=== PATIENT | female | born 1940 | race Two or more races ===

== ENCOUNTER 2024-07-15 07:00 | Inpatient (IN) | payer OTHER ==
[~2024-07-15] VITALS: Ht 154.9 cm; Wt 53.5 kg
[2024-07-15 07:03] VITALS: O2SAT 99
[2024-07-15 09:06] LABS: BASOPHILS % 0.4 % (0.0-2.0); EOSINOPHILS % 3.9 % (0.0-5.0); HEMATOCRIT. 36.5 % (36.0-48.0); HEMOGLOBIN. 11.7 g/dL (12.0-16.0); LYMPHOCYTES % 8.9 % (20.0-50.0); MEAN CORPUSCULAR HEMOGLOBIN 27.8 pg (28.0-32.0); MEAN CORPUSCULAR VOLUME 86.7 fL (81.0-99.0); MEAN PLATELET VOLUME 8.4 fl (7.4-10.4); MONOCYTES % 13.2 % (2.0-8.0); NEUTROPHILS % 73.6 % (40.0-76.0); PLATELET 215 x1000/uL (130-400); RED BLOOD CELL COUNT 4.21 mill/uL (4.2-5.4); RED CELL DISTRIBUTION WIDTH 17.3 % (11.6-14.6)
[2024-07-15 09:13] LABS: CHLORIDE 103 mEq/L (98-107); POTASSIUM 4.8 mEq/L (3.5-5.1); SODIUM 134 mEq/L (136-145)
[2024-07-15 09:14] LABS: CALCIUM 8.6 mg/dL (8.7-10.4); CARBON DIOXIDE 27 mEq/L (21-32)
[2024-07-15 09:19] LABS: CREATININE 1.3 mg/dL (0.6-1.0); GLUCOSE 97 mg/dL (70-105); UREA NITROGEN BLOOD 29 mg/dL (9-23)
[2024-07-15 09:26] LABS: TROPONIN I HIGH SENSITIVITY 67 ng/L (3.0-34)
[2024-07-15] MEDS ORDERED: DEXTROSE 50% WATER 50ML SYRINGE IV PRN (10:00)
[2024-07-15] MEDS ORDERED: DOCUSATE SODIUM 100MG CAPSULE PO PRN (10:00)
[2024-07-15] MEDS ORDERED: GUAIFENESIN 200MG/10ML SUGAR FREE UDC PO PRN (10:00)
[2024-07-15] MEDS ORDERED: ONDANSETRON HCL 4MG/2ML INJ IV PRN (10:00)
[2024-07-15] MEDS ORDERED: ACETAMINOPHEN 325MG TABLET PO PRN ×2 (10:00)
[2024-07-15] MEDS ORDERED: IPRATROPIUM/ALBUTEROL 0.5-3(2.5)MG/3ML NEB HHN PRN (10:00)
[2024-07-15] MEDS ORDERED: CLONIDINE 0.1MG TABLET PO PRN (10:00)
[2024-07-15] MEDS ORDERED: MAGNESIUM/ALUMINUM HYDROXIDE/SIMETHICONE 30ML UDC PO PRN (10:00)
[2024-07-15 10:30] VITALS: BP 113/60; PULSE 71; RESP 18; TEMP 36.6; O2SAT 99
[2024-07-15] MEDS ORDERED: NALOXONE HCL 0.4MG/ML VIAL IV PRN (10:30)
[2024-07-15 11:42] VITALS: BP 113/60; PULSE 71; RESP 16; TEMP 36.6
[2024-07-15 12:00] VITALS: BP 113/60; PULSE 76; RESP 17; TEMP 36.5; O2SAT 99
[2024-07-15] MEDS: BLOOD SUGAR DIAGNOSTIC STRIP TEST SCH (12:59)
[2024-07-15 13:07] LABS: IRON 35 ug/dL (50-170)
[2024-07-15 13:08] LABS: TRIGLYCERIDE 54 mg/dL (0-150)
[2024-07-15 13:09] LABS: LDL CHOLESTEROL 89 mg/dL (5-100)
[2024-07-15 13:10] LABS: CHOLESTEROL 137 mg/dL (<200); HDL CHOLESTEROL 42 mg/dL (>65); PHOSPHORUS 2.8 mg/dL (2.5-4.9); TOTAL IRON BINDING CAPACITY 345 ug/dl (250-425)
[2024-07-15 13:11] LABS: FERRITIN 90 ng/mL (10-291)
[2024-07-15 13:12] LABS: T4 FREE 1.41 ng/dL (0.89-1.76); THYROID STIMULATING HORMONE 2.86 uIU/mL (0.55-4.78); VITAMIN B12 SERUM 741 pg/mL (211-911)
[2024-07-15 14:21] LABS: INR 1.3; PARTIAL THROMBOPLASTIN TIME 34.2 sec (23.4-31.0); PROTHROMBIN TIME 13.4 sec (9.6-11.0)
[2024-07-15] MEDS: CEFTRIAXONE 1GM/50ML 50 ML IV SCH (14:27)
[2024-07-15] MEDS: CLINDAMYCIN 600MG PREMIX 50 ML IV SCH ×2 (14:28→21:59)
[2024-07-15 16:00] VITALS: BP 120/73; PULSE 109; RESP 20; TEMP 36.2; O2SAT 98
[2024-07-15 16:26] LABS: CREATINE KINASE 346 IU/L (34-145)
[2024-07-15 16:58] LABS: TROPONIN I HIGH SENSITIVITY 58 ng/L (3.0-34)
[2024-07-15] MEDS: FUROSEMIDE 40MG/4ML VIAL IVP SCH (18:02)
[2024-07-15] MEDS: ENOXAPARIN 60MG/0.6ML SYR SUBCUT SCH (18:04)
[2024-07-15] MEDS: HYDROCODONE/ACETAMINOPHEN 5/325MG TABLET PO PRN (18:05)
[2024-07-15 20:00] VITALS: BP 96/60; PULSE 99; RESP 20; TEMP 36.7; O2SAT 98
[2024-07-16] VITALS: BP 115/65; PULSE 97; RESP 18; TEMP 37.1; O2SAT 98
[2024-07-16 00:45] LABS: CREATINE KINASE 254 IU/L (34-145)
[2024-07-16 01:09] LABS: TROPONIN I HIGH SENSITIVITY 53 ng/L (3.0-34)
[2024-07-16 04:00] VITALS: BP 103/61; PULSE 95; RESP 18; TEMP 36.4; O2SAT 100
[2024-07-16 06:54] LABS: BASOPHILS % 0.9 % (0.0-2.0); EOSINOPHILS % 5.1 % (0.0-5.0); HEMATOCRIT. 34.3 % (36.0-48.0); LYMPHOCYTES % 11.4 % (20.0-50.0); MEAN CORPUSCULAR HEMOGLOBIN 27.9 pg (28.0-32.0); MEAN CORPUSCULAR HGB CONC 32.1 g/dL (31.0-37.0); MEAN CORPUSCULAR VOLUME 87.1 fL (81.0-99.0); MEAN PLATELET VOLUME 8.3 fl (7.4-10.4); MONOCYTES % 14.9 % (2.0-8.0); NEUTROPHILS % 67.7 % (40.0-76.0); PLATELET 200 x1000/uL (130-400); POTASSIUM 4.4 mEq/L (3.5-5.1); RED BLOOD CELL COUNT 3.94 mill/uL (4.2-5.4); RED CELL DISTRIBUTION WIDTH 16.9 % (11.6-14.6); WHITE BLOOD COUNT 5.8 x1000/uL (4.5-11.0)
[2024-07-16 07:00] LABS: CREATININE 1.4 mg/dL (0.6-1.0)
[2024-07-16] MEDS: CEFTRIAXONE 1GM/50ML 50 ML IV SCH (09:03)
[2024-07-16] MEDS: FAMOTIDINE 20MG/2ML VIAL IV SCH (09:04)
[2024-07-16 10:23] LABS: *AMPHETAMINES SCREEN URINE NEGATIVE (NEGATIVE); *BARBITURATES SCREEN URINE NEGATIVE (NEGATIVE); *BENZODIAZEPINES SCREEN URINE NEGATIVE (NEGATIVE); *COCAINE SCREEN URINE NEGATIVE (NEGATIVE); CREATININE URINE RANDOM 69.6 mg/dL; METHADONE URINE SCREEN NEGATIVE (NEGATIVE); OPIATES URINE SCREEN NEGATIVE (NEGATIVE)
[2024-07-16 10:24] LABS: CANNABINOID URINE SCREEN NEGATIVE (NEGATIVE); ECSTASY MDMA SCREEN URINE NEGATIVE (NEGATIVE); PHENCYCLIDINE URINE SCREEN NEGATIVE (NEGATIVE)
[2024-07-16 12:00] VITALS: BP 111/60; PULSE 73; RESP 16; TEMP 37.1; O2SAT 98
[2024-07-16 16:00] VITALS: BP 131/60; PULSE 71; RESP 20; TEMP 36.4; O2SAT 97
[2024-07-16] MEDS: ENOXAPARIN 30MG/0.3ML SYR SUBCUT SCH (17:52)
[2024-07-16 21:04] LABS: ALANINE AMINOTRANSFERASE 31 IU/L (10-49); ALBUMIN 2.6 g/dL (3.2-4.8); ASPARTATE AMINOTRANSFERASE 52 IU/L (<34); BILIRUBIN DIRECT 0.9 mg/dL (<=3.0); BILIRUBIN TOTAL 1.7 mg/dL (0.1-1.0); PROTEIN TOTAL 5.8 g/dL (6.0-8.3)
== END 2024-07-16 20:40 | disposition short-term general hospital (02) | DRG 280 ==
LOC: ER 07:00 → 7WST 08:22 → EDBEDREQTM 08:26 → EDBEDREQ 08:26
PROVIDERS: ADMIT Hospitalist; ATTEND Hospitalist
DX: I48.91 Unspecified atrial fibrillation (principal); N17.0 Acute kidney failure with tubular necrosis; I21.A1 Myocardial infarction type 2; E87.1 Hypo-osmolality and hyponatremia; G93.40 Encephalopathy, unspecified; I50.42 Chronic combined systolic (congestive) and diastolic (congestive) heart failure; L03.116 Cellulitis of left lower limb; L03.115 Cellulitis of right lower limb; I13.0 Hypertensive heart and chronic kidney disease with heart failure and stage 1 through stage 4 chronic kidney disease, or unspecified chronic kidney disease; E86.0 Dehydration; G90.89 Other disorders of autonomic nervous system; I87.2 Venous insufficiency (chronic) (peripheral); I89.0 Lymphedema, not elsewhere classified; N18.9 Chronic kidney disease, unspecified; D63.8 Anemia in other chronic diseases classified elsewhere; E78.00 Pure hypercholesterolemia, unspecified; I95.9 Hypotension, unspecified; Z91.81 History of falling; Z79.01 Long term (current) use of anticoagulants; Z79.899 Other long term (current) drug therapy
CPT/HCPCS: 36415; 71045; 80048; 80061; 80076; 80305; 82040; 82550; 82570; 82607; 82728; 82962; 83036; 83540; 83550; 83605; 83735; 83880; 83930; 83935; 84100; 84145; 84300; 84439; 84443; 84484; 84540; 85025; 85044; 85651; 87070; 87077; 87186; 93005; 93923; 99285; A4606; J0696; J1650; J1940; J3490

== ENCOUNTER 2024-08-13 18:37 | Inpatient (IN) | payer OTHER, MEDICARE ==
[~2024-08-13] VITALS: Ht 132.1 cm; Wt 63.5 kg
[2024-08-13 18:39] VITALS: O2SAT 100
[2024-08-13] MEDS: SODIUM CHLORIDE 0.9% (SEPSIS BOLUS) IV ONE (19:05)
[2024-08-13] MEDS: PIPERACILLIN/TAZO 3.375G/50ML 50 ML IV ONE (19:06)
[2024-08-13 19:26] LABS: CHLORIDE 108 mEq/L (98-107); POTASSIUM 3.9 mEq/L (3.5-5.1); SODIUM 145 mEq/L (136-145)
[2024-08-13 19:27] LABS: CALCIUM 7.9 mg/dL (8.7-10.4); CARBON DIOXIDE 23 mEq/L (21-32)
[2024-08-13 19:32] LABS: GLUCOSE 61 mg/dL (70-105); UREA NITROGEN BLOOD 46 mg/dL (9-23)
[2024-08-13 19:33] LABS: CREATININE 2.2 mg/dL (0.6-1.0)
[2024-08-13 19:34] LABS: ALANINE AMINOTRANSFERASE 28 IU/L (10-49); ALBUMIN 2.3 g/dL (3.2-4.8); ASPARTATE AMINOTRANSFERASE 70 IU/L (<34); CREATINE KINASE 382 IU/L (34-145)
[2024-08-13 19:35] LABS: BILIRUBIN DIRECT 1.7 mg/dL (<=3.0); BILIRUBIN TOTAL 2.6 mg/dL (0.1-1.0); PROTEIN TOTAL 5.3 g/dL (6.0-8.3)
[2024-08-13 19:37] LABS: HEMATOCRIT. 39.2 % (36.0-48.0); HEMOGLOBIN. 12.3 g/dL (12.0-16.0); MEAN CORPUSCULAR HEMOGLOBIN 26.8 pg (28.0-32.0); MEAN CORPUSCULAR HGB CONC 31.5 g/dL (31.0-37.0); MEAN CORPUSCULAR VOLUME 85.2 fL (81.0-99.0); MEAN PLATELET VOLUME 8.2 fl (7.4-10.4); PLATELET 173 x1000/uL (130-400); RED CELL DISTRIBUTION WIDTH 18.9 % (11.6-14.6); WHITE BLOOD COUNT 2.1 x1000/uL (4.5-11.0)
[2024-08-13 19:42] LABS: DIFFERENTIAL COMMENT 1
[2024-08-13 19:46] LABS: LACTIC ACID 4.7 mmol/L (0.4-2.0)
[2024-08-13 19:47] LABS: TROPONIN I HIGH SENSITIVITY 106 ng/L (3.0-34)
[2024-08-13] MEDS: VANCOMYCIN 1G PREMIX 200 ML IV ONE (20:08)
[2024-08-13 20:12] LABS: ANISOCYTOSIS 1+; PLATELET ESTIMATE NORMAL
[2024-08-13] MEDS ORDERED: FUROSEMIDE 40MG/4ML VIAL IVP ONE (20:15)
[2024-08-13] MEDS: DEXTROSE 50% WATER 50ML SYRINGE IV ONE (20:40)
[2024-08-13] MEDS: NOREPINEPHRINE 8MG/250ML PMX 250 ML IV ONE (21:09)
[2024-08-13] MEDS ORDERED: MAGNESIUM/ALUMINUM HYDROXIDE/SIMETHICONE 30ML UDC PO PRN (21:15)
[2024-08-13] MEDS ORDERED: ACETAMINOPHEN 325MG TABLET PO PRN ×2 (21:15→21:30)
[2024-08-13] MEDS ORDERED: ONDANSETRON HCL 4MG/2ML INJ IV PRN (21:15)
[2024-08-13] MEDS ORDERED: DOCUSATE SODIUM 100MG CAPSULE PO PRN (21:15)
[2024-08-13] MEDS ORDERED: IPRATROPIUM/ALBUTEROL 0.5-3(2.5)MG/3ML NEB HHN PRN (21:15)
[2024-08-13] MEDS ORDERED: HYDROCODONE/ACETAMINOPHEN 5/325MG TABLET PO PRN (21:15)
[2024-08-13] MEDS ORDERED: ENOXAPARIN 40MG/0.4ML SYR SUBCUT SCH (21:15)
[2024-08-13] MEDS ORDERED: PIPERACILLIN/TAZOBACTAM 3.375 G in DEXTROSE 5% WATER 50 ML IV SCH (21:15)
[2024-08-13] MEDS ORDERED: POTASSIUM CHLORIDE 20MEQ TABLET SR PO PRN (21:15)
[2024-08-13] MEDS ORDERED: DEXTROSE 50% WATER 50ML SYRINGE IV PRN (21:15)
[2024-08-13] MEDS ORDERED: NALOXONE HCL 0.4MG/ML VIAL IV PRN (21:45)
[2024-08-13 21:49] LABS: PROTHROMBIN TIME > 100.0 sec (9.6-11.0)
[2024-08-13] MEDS: SODIUM CHLORIDE 0.9% 1,000 ML IV SCH (21:50)
[2024-08-13 21:53] LABS: INR > 10.0
[2024-08-13] MEDS: ENOXAPARIN 30MG/0.3ML SYR SUBCUT SCH (22:00)
[2024-08-13] MEDS: DEXT 10% WATER 1,000 ML IV SCH (23:17)
[2024-08-14] VITALS (78 sets, daily range): BP systolic 56–149; BP diastolic 29–125; PULSE 86–133; RESP 13–24; TEMP 36.1–37.1; O2SAT 86–100
[2024-08-14] MEDS ORDERED: FUROSEMIDE 40MG/4ML VIAL IVP ONE (00:30)
[2024-08-14] MEDS: FUROSEMIDE 40MG/4ML VIAL IVP NR (01:24)
[2024-08-14 06:16] LABS: CALCIUM 8.2 mg/dL (8.7-10.4); CARBON DIOXIDE 22 mEq/L (21-32); CHLORIDE 109 mEq/L (98-107); HEMATOCRIT. 42.1 % (36.0-48.0); HEMOGLOBIN. 13.2 g/dL (12.0-16.0); MEAN CORPUSCULAR HGB CONC 31.3 g/dL (31.0-37.0); MEAN CORPUSCULAR VOLUME 86.3 fL (81.0-99.0); MEAN PLATELET VOLUME 8.4 fl (7.4-10.4); PLATELET 177 x1000/uL (130-400); RED BLOOD CELL COUNT 4.88 mill/uL (4.2-5.4); RED CELL DISTRIBUTION WIDTH 18.9 % (11.6-14.6); SODIUM 144 mEq/L (136-145); WHITE BLOOD COUNT 4.8 x1000/uL (4.5-11.0)
[2024-08-14 06:18] LABS: DIFFERENTIAL COMMENT 1
[2024-08-14 06:21] LABS: CREATININE 2.1 mg/dL (0.6-1.0); GLUCOSE 82 mg/dL (70-105)
[2024-08-14 06:22] LABS: LDL CHOLESTEROL 73 mg/dL (5-100); TRIGLYCERIDE 55 mg/dL (0-150); UREA NITROGEN BLOOD 45 mg/dL (9-23)
[2024-08-14 06:23] LABS: ALANINE AMINOTRANSFERASE 35 IU/L (10-49); ALBUMIN 2.5 g/dL (3.2-4.8); ASPARTATE AMINOTRANSFERASE 98 IU/L (<34); CHOLESTEROL 125 mg/dL (<200); CREATINE KINASE 304 IU/L (34-145); HDL CHOLESTEROL 21 mg/dL (>65)
[2024-08-14 06:24] LABS: BILIRUBIN DIRECT 1.7 mg/dL (<=3.0); BILIRUBIN TOTAL 2.6 mg/dL (0.1-1.0); PHOSPHORUS 4.3 mg/dL (2.5-4.9); PROTEIN TOTAL 5.9 g/dL (6.0-8.3)
[2024-08-14 06:26] LABS: T4 FREE 0.96 ng/dL (0.89-1.76)
[2024-08-14 06:29] LABS: CLARITY URINE CLOUDY (CLEAR); COLOR URINE DARK YELLOW (YELLOW); GLUCOSE URINE NEGATIVE (NEGATIVE); KETONES URINE NEGATIVE (NEGATIVE); LEUKOCYTE ESTERASE URINE TRACE (NEGATIVE); NITRITE URINE NEGATIVE (NEGATIVE); OCCULT BLOOD URINE NEGATIVE (NEGATIVE); PROTEIN URINE NEGATIVE (NEGATIVE); SPECIFIC GRAVITY URINE 1.015 (1.005-1.030)
[2024-08-14 06:51] LABS: TROPONIN I HIGH SENSITIVITY 106 ng/L (3.0-34)
[2024-08-14] MEDS ORDERED: NOREPINEPHRINE 8 MG in DEXT 5% WATER 242 ML IV PRN (07:15)
[2024-08-14] MEDS: NOREPINEPHRINE 8MG/250ML PMX 250 ML IV PRN (07:16)
[2024-08-14 07:25] LABS: BACTERIA URINE 1+; HYALINE CASTS URINE 0-5 /lpf; RBC URINE 0-2 /hpf (0-2); SQUAMOUS EPITHELIAL CELL URINE FEW /lpf (RARE/1+); WBC URINE 0-2 /hpf (0-2); YEAST URINE NONE SEEN
[2024-08-14 07:30] LABS: INR > 10.0; PROTHROMBIN TIME > 100.0 sec (9.6-11.0)
[2024-08-14 07:32] LABS: *AMPHETAMINES SCREEN URINE NEGATIVE (NEGATIVE)
[2024-08-14 07:35] LABS: *BARBITURATES SCREEN URINE NEGATIVE (NEGATIVE); *BENZODIAZEPINES SCREEN URINE NEGATIVE (NEGATIVE)
[2024-08-14 07:36] LABS: *COCAINE SCREEN URINE NEGATIVE (NEGATIVE); CANNABINOID URINE SCREEN NEGATIVE (NEGATIVE); ECSTASY MDMA SCREEN URINE NEGATIVE (NEGATIVE); METHADONE URINE SCREEN NEGATIVE (NEGATIVE); OPIATES URINE SCREEN NEGATIVE (NEGATIVE); PHENCYCLIDINE URINE SCREEN NEGATIVE (NEGATIVE)
[2024-08-14] MEDS: BLOOD SUGAR DIAGNOSTIC STRIP TEST SCH (08:00)
[2024-08-14 08:44] LABS: NUCLEATED RED BLOOD CELLS 1 /100 WBC; TOXIC VACUOLATION 3+
[2024-08-14 08:46] LABS: PLATELET ESTIMATE NORMAL
[2024-08-14 08:47] LABS: ANISOCYTOSIS 1+
[2024-08-14] MEDS ORDERED: NOREPINEPHRINE 32 MG in DEXT 5% WATER 218 ML IV PRN (09:00)
[2024-08-14] MEDS ORDERED: DIGOXIN 50MCG/ML ORAL SYR PO ONE (09:15)
[2024-08-14] MEDS: PHENYLEPHRINE 100 MG in DEXT 5% WATER 240 ML IV PRN (09:26)
[2024-08-14] MEDS: DIGOXIN 125MCG TABLET PO NR (10:40)
[2024-08-14] MEDS: PIPERACILLIN/TAZO 3.375G/50ML IV SCH (10:40)
[2024-08-14] MEDS: PANTOPRAZOLE 40MG DR TABLET PO SCH (10:40)
[2024-08-14] MEDS ORDERED: LIDOCAINE HCL 1% 10 MG/ML 10ML VIAL ONE (12:31)
[2024-08-14] MEDS ORDERED: DILTIAZEM HCL 5MG/ML 5ML VIAL IV PRN (12:45)
[2024-08-14] MEDS: VANCOMYCIN 500MG PREMIX 100 ML IV SCH (21:21)
[2024-08-14] MEDS: VASOPRESSIN 20 UNIT in SODIUM CHLORIDE 0.9% 99 ML IV PRN (22:32)
[2024-08-15] VITALS (82 sets, daily range): BP systolic 65–134; BP diastolic 44–103; PULSE 77–112; RESP 11–26; TEMP 36.05844–36.7; O2SAT 90–100
[2024-08-15] MEDS: AZITHROMYCIN 500MG/250ML 250 ML IV SCH (01:42)
[2024-08-15 05:53] LABS: HEMOGLOBIN. 12.4 g/dL (12.0-16.0); MEAN CORPUSCULAR HEMOGLOBIN 26.7 pg (28.0-32.0); MEAN CORPUSCULAR HGB CONC 30.9 g/dL (31.0-37.0); MEAN CORPUSCULAR VOLUME 86.5 fL (81.0-99.0); MEAN PLATELET VOLUME 8.4 fl (7.4-10.4); PLATELET 126 x1000/uL (130-400); RED BLOOD CELL COUNT 4.62 mill/uL (4.2-5.4); RED CELL DISTRIBUTION WIDTH 18.9 % (11.6-14.6); WHITE BLOOD COUNT 15.3 x1000/uL (4.5-11.0)
[2024-08-15 06:04] LABS: DIFFERENTIAL COMMENT 1
[2024-08-15 06:10] LABS: CHLORIDE 105 mEq/L (98-107); POTASSIUM 5.2 mEq/L (3.5-5.1); SODIUM 140 mEq/L (136-145)
[2024-08-15 06:11] LABS: CALCIUM 8.3 mg/dL (8.7-10.4); CARBON DIOXIDE 22 mEq/L (21-32)
[2024-08-15 06:16] LABS: CREATININE 2.5 mg/dL (0.6-1.0); GLUCOSE 125 mg/dL (70-105); UREA NITROGEN BLOOD 50 mg/dL (9-23)
[2024-08-15 06:18] LABS: ALANINE AMINOTRANSFERASE 41 IU/L (10-49); ALBUMIN 2.4 g/dL (3.2-4.8); ASPARTATE AMINOTRANSFERASE 99 IU/L (<34); BILIRUBIN DIRECT 1.7 mg/dL (<=3.0); BILIRUBIN TOTAL 2.5 mg/dL (0.1-1.0); PHOSPHORUS 5.2 mg/dL (2.5-4.9); PROTEIN TOTAL 5.5 g/dL (6.0-8.3)
[2024-08-15 06:22] LABS: TROPONIN I HIGH SENSITIVITY 68 ng/L (3.0-34)
[2024-08-15] MEDS ORDERED: SODIUM POLYSTYRENE SULFONATE 15 G/60 ML BOT PO ONE (07:30)
[2024-08-15] MEDS: SEVELAMER CARBONATE 800 MG TABLET PO NR (08:50)
[2024-08-15] MEDS: SODIUM ZIRCONIUM CYCLOSILICATE 10GM/PACKET PO NR (08:51)
[2024-08-15 09:19] LABS: PLATELET ESTIMATE SLIGHTLY DECREASED
[2024-08-15 09:25] LABS: TOXIC VACUOLATION 1+
[2024-08-15 10:36] LABS: HEMATOCRIT. 37.5 % (36.0-48.0); HEMOGLOBIN. 11.7 g/dL (12.0-16.0); MEAN CORPUSCULAR HEMOGLOBIN 26.6 pg (28.0-32.0); MEAN CORPUSCULAR HGB CONC 31.3 g/dL (31.0-37.0); MEAN CORPUSCULAR VOLUME 84.9 fL (81.0-99.0); MEAN PLATELET VOLUME 8.5 fl (7.4-10.4); PLATELET 117 x1000/uL (130-400); RED BLOOD CELL COUNT 4.41 mill/uL (4.2-5.4); RED CELL DISTRIBUTION WIDTH 19.1 % (11.6-14.6); WHITE BLOOD COUNT 15.7 x1000/uL (4.5-11.0)
[2024-08-15 10:37] LABS: DIFFERENTIAL COMMENT 1
[2024-08-15 11:50] LABS: INR > 10.0; PROTHROMBIN TIME > 100.0 sec (9.6-11.0)
[2024-08-15 12:41] LABS: NUCLEATED RED BLOOD CELLS 1 /100 WBC; PLATELET ESTIMATE DECREASED
[2024-08-15 12:42] LABS: ANISOCYTOSIS 1+
[2024-08-15] MEDS: PHYTONADIONE 10MG/ML INJ SUBCUT SCH (14:06)
[2024-08-15] MEDS: SODIUM CHLORIDE 0.9% 500 ML IV ONE (15:32)
[2024-08-15] MEDS: DEXTROSE 50% WATER 50ML SYRINGE IV PRN (16:07)
[2024-08-15 16:13] LABS: PROTHROMBIN TIME 38.7 sec (9.6-11.0)
[2024-08-15 16:29] LABS: INR 4.1
[2024-08-15] MEDS ORDERED: SODIUM CHLORIDE 0.9% 1,000 ML IV SCH (19:15)
[2024-08-15] MEDS ORDERED: VANCOMYCIN 750MG/150ML (BAXTER) IV SCH (21:00)
[2024-08-16] VITALS (77 sets, daily range): BP systolic 85–132; BP diastolic 40–109; PULSE 66–92; RESP 11–27; TEMP 36.3–36.6; O2SAT 98–100
[2024-08-16 05:02] LABS: HEMATOCRIT. 34.3 % (36.0-48.0); HEMOGLOBIN. 10.9 g/dL (12.0-16.0); MEAN CORPUSCULAR HEMOGLOBIN 26.7 pg (28.0-32.0); MEAN CORPUSCULAR HGB CONC 31.9 g/dL (31.0-37.0); MEAN CORPUSCULAR VOLUME 83.7 fL (81.0-99.0); MEAN PLATELET VOLUME 8.8 fl (7.4-10.4); PLATELET 98 x1000/uL (130-400); RED CELL DISTRIBUTION WIDTH 18.1 % (11.6-14.6)
[2024-08-16 05:09] LABS: PROTHROMBIN TIME 37.3 sec (9.6-11.0)
[2024-08-16 05:18] LABS: CHLORIDE 104 mEq/L (98-107); POTASSIUM 4.6 mEq/L (3.5-5.1); SODIUM 137 mEq/L (136-145)
[2024-08-16 05:19] LABS: CALCIUM 7.8 mg/dL (8.7-10.4); CARBON DIOXIDE 22 mEq/L (21-32)
[2024-08-16 05:22] LABS: UREA NITROGEN BLOOD 58 mg/dL (9-23)
[2024-08-16 05:24] LABS: CREATININE 2.6 mg/dL (0.6-1.0); GLUCOSE 108 mg/dL (70-105)
[2024-08-16 05:26] LABS: ALANINE AMINOTRANSFERASE 38 IU/L (10-49); ALBUMIN 2.6 g/dL (3.2-4.8); ASPARTATE AMINOTRANSFERASE 66 IU/L (<34)
[2024-08-16 05:27] LABS: BILIRUBIN DIRECT 1.8 mg/dL (<=3.0); BILIRUBIN TOTAL 2.4 mg/dL (0.1-1.0); PHOSPHORUS 4.8 mg/dL (2.5-4.9); PROTEIN TOTAL 5.7 g/dL (6.0-8.3)
[2024-08-16 05:37] LABS: DIFFERENTIAL COMMENT 1
[2024-08-16] MEDS ORDERED: SODIUM CHLORIDE 0.45% 250 ML IV ONE (07:36)
[2024-08-16] MEDS: FOLIC ACID/VITAMIN B COMP W-C TABLET PO SCH (08:08)
[2024-08-16] MEDS: DEXT 5%/0.9% NACL 1,000 ML IV SCH (08:59)
[2024-08-16 09:08] LABS: PLATELET ESTIMATE DECREASED
[2024-08-16 09:09] LABS: ANISOCYTOSIS 1+
[2024-08-16] MEDS: MIDODRINE HCL 5MG TABLET PO SCH (15:16)
[2024-08-16] MEDS: VANCOMYCIN 500MG/100ML IV NR (15:16)
[2024-08-16 21:07] LABS: POTASSIUM 5.4 mEq/L (3.5-5.1)
[2024-08-16 21:08] LABS: CALCIUM 7.6 mg/dL (8.7-10.4)
[2024-08-16 21:13] LABS: CREATININE 2.4 mg/dL (0.6-1.0)
[2024-08-16] MEDS: LACTOBACILLUS RHAMNOSUS GG CAP PO SCH (23:05)
[2024-08-16] MEDS: CLINDAMYCIN 900MG PREMIX 50 ML IV SCH (23:06)
[2024-08-16] MEDS: CEFTRIAXONE 2GM/50ML 50 ML IV SCH (23:56)
[2024-08-17] VITALS (90 sets, daily range): BP systolic 86–131; BP diastolic 42–86; PULSE 58–82; RESP 8–33; TEMP 35.6–36.5; O2SAT 96–100
[2024-08-17 05:25] LABS: HEMOGLOBIN. 10.8 g/dL (12.0-16.0); MEAN CORPUSCULAR HEMOGLOBIN 26.7 pg (28.0-32.0); MEAN CORPUSCULAR HGB CONC 31.9 g/dL (31.0-37.0); MEAN CORPUSCULAR VOLUME 83.7 fL (81.0-99.0); MEAN PLATELET VOLUME 8.8 fl (7.4-10.4); PLATELET 80 x1000/uL (130-400); RED BLOOD CELL COUNT 4.07 mill/uL (4.2-5.4); RED CELL DISTRIBUTION WIDTH 18.5 % (11.6-14.6); WHITE BLOOD COUNT 9.1 x1000/uL (4.5-11.0)
[2024-08-17 05:34] LABS: DIFFERENTIAL COMMENT 1
[2024-08-17 05:41] LABS: INR 1.6; PROTHROMBIN TIME 16.2 sec (9.6-11.0)
[2024-08-17 05:46] LABS: POTASSIUM 4.2 mEq/L (3.5-5.1)
[2024-08-17 05:48] LABS: CALCIUM 7.7 mg/dL (8.7-10.4)
[2024-08-17 05:52] LABS: CREATININE 2.3 mg/dL (0.6-1.0)
[2024-08-17 07:35] LABS: ANISOCYTOSIS 2+; NUCLEATED RED BLOOD CELLS 1 /100 WBC; PLATELET ESTIMATE DECREASED
[2024-08-17] MEDS ORDERED: MIDODRINE HCL 5MG TABLET PO SCH (22:00)
== END 2024-08-17 21:41 | disposition short-term general hospital (02) | DRG 871 ==
LOC: ER 19:30 → EDBEDREQ 19:54 → MICUSO 20:53 → EDBEDREQ 21:01 → EDBEDREQSVC 21:01 → ENRESERV 08-14 07:23 → MICUSO 08-16 06:57
PROVIDERS: ADMIT Family Medicine Adult Medicine; ATTEND Family Medicine Adult Medicine
PROC: 02HV33Z Insertion of Infusion Device into Superior Vena Cava, Percutaneous Approach (ICD-10-PCS; principal; 2024-08-14)
PROC: 30233K1 Transfusion of Nonautologous Frozen Plasma into Peripheral Vein, Percutaneous Approach (ICD-10-PCS; 2024-08-15)
DX: A41.89 Other specified sepsis (principal); I21.A1 Myocardial infarction type 2; J18.9 Pneumonia, unspecified organism; J96.01 Acute respiratory failure with hypoxia; N17.0 Acute kidney failure with tubular necrosis; R65.21 Severe sepsis with septic shock; L03.115 Cellulitis of right lower limb; I13.0 Hypertensive heart and chronic kidney disease with heart failure and stage 1 through stage 4 chronic kidney disease, or unspecified chronic kidney disease; G93.40 Encephalopathy, unspecified; M62.82 Rhabdomyolysis; E87.20 Acidosis, unspecified; I50.22 Chronic systolic (congestive) heart failure; L03.116 Cellulitis of left lower limb; I48.91 Unspecified atrial fibrillation; E11.649 Type 2 diabetes mellitus with hypoglycemia without coma; E11.22 Type 2 diabetes mellitus with diabetic chronic kidney disease; N18.30 Chronic kidney disease, stage 3 unspecified; R79.1 Abnormal coagulation profile; I87.2 Venous insufficiency (chronic) (peripheral); E86.9 Volume depletion, unspecified; I35.2 Nonrheumatic aortic (valve) stenosis with insufficiency; I08.1 Rheumatic disorders of both mitral and tricuspid valves; E11.51 Type 2 diabetes mellitus with diabetic peripheral angiopathy without gangrene; E78.5 Hyperlipidemia, unspecified; Z91.81 History of falling; Z79.01 Long term (current) use of anticoagulants
CPT/HCPCS: 36415; 36573; 71045; 73552; 74176; 76604; 76770; 80048; 80061; 80076; 80202; 80305; 81003; 82530; 82550; 82962; 83036; 83605; 83735; 83880; 84100; 84145; 84439; 84484; 85025; 85651; 86850; 86900; 86927; 87070; 87077; 87186; 93005; 93306; 93923; 93970; 99291; A4606; A6261; C1725; J0456; J0696; J1650; J1940; J2003; J2371; J2543; J3370; J3430; J3490; J7030; J7042; J7050; J7060; P9017